=== PATIENT | male | born 1935 | race Caucasian/White ===

== ENCOUNTER 2017-09-10 13:40 | Day surgery (SDC) | payer MEDICARE, OTHER ==
[2017-09-10 14:02] VITALS: BP 144/84; PULSE 67; RESP 20; TEMP 98.5; O2SAT 96
[2017-09-10] MEDS ORDERED: METO25TA3 PO (14:14)
[2017-09-10] MEDS ORDERED: MOBI7.5T PO (14:14)
[2017-09-10] MEDS ORDERED: LOSA25TA PO (14:14)
[2017-09-10 14:35] VITALS: BP 130/64; PULSE 66; RESP 20; TEMP 98.4; O2SAT 95
--- NOTE | 2017-09-11 10:32 | RADRPT ---
EXAM DATE: 09/10/2017 3:06 PM EDT AGE/SEX: 82 years / Male INDICATIONS: Patient with rectal mass. CLINICAL DATA: This is the patient's initial encounter. Patient reports that signs and symptoms have been present for 2 days and indicates a pain score of 0/10. MEDICAL/SURGICAL HISTORY: Hypertension. rectal mass . COMPARISON: No prior [facility] exams available for comparison. FLUORO TIME (min): 0.2 IMAGE SERIES: ACCESS SITE: Left basilic vein DEVICE(S): 4 Chinese single lumen Xcela Power PICC . . PROCEDURE : 1. Ultrasound guidance for venous catheterization. 2. Fluoroscopic guidance. 3. Ultrasound & fluoroscopic guided central venous Power PICC line placement. The risks, benefits and alternatives to the procedure were explained and verbal and written consent w as obtained. The site was prepped in sterile fashion. Full sterile technique was used, including ca p, mask, sterile gloves and gown and a large sterile sheet. Hand hygiene and 2% chlorhexidine prep w as utilized per protocol for cutaneous antisepsis with appropriate dry time for site. Sterile gel a nd sterile probe cover were utilized for ultrasound guidance. The skin and subcutaneous tissues wer e infiltrated with local anesthetic solution. Under direct ultrasound guidance, a suitable vein was accessed and a measuring guidewire was introduc ed and positioned in the central venous system. The ultrasound images depicting access guidance were saved and stored to PACS for permanent record. A Power Injectable PICC line was cut to prescribed length and introduced, positioned with tip at the cavoatrial junction level. The line was flushed and secured per protocol. CONCLUSION: 1. Uncomplicated central venous Power PICC line placement. 2. The PICC line can be used immediately. Electronically signed by: Kaleb Quiroga MD 09/11/2017 10:30 AM EDT
== END 2017-09-10 15:00 | disposition home or self-care (01) ==
LOC: HROP 13:40 → HRIP 13:43 → HROP 15:00
PROVIDERS: ATTEND Specialist
DX: K62.89 Other specified diseases of anus and rectum (principal); I10 Essential (primary) hypertension; E78.5 Hyperlipidemia, unspecified; E83.119 Hemochromatosis, unspecified; Z85.46 Personal history of malignant neoplasm of prostate
CPT/HCPCS: 36569; 76937; 77001; C1751; J1642

== ENCOUNTER 2017-09-16 08:39 | Day surgery (SDC) | payer MEDICARE, OTHER ==
[~2017-09-16] VITALS: Ht 182.9 cm; Wt 118.2 kg
[~2017-09-16 08:39] MED LIST: LOSA25TA PO; METO25TA3 PO; MOBI7.5T PO
[2017-09-16 08:56] VITALS: BP 147/109; PULSE 72; RESP 20; TEMP 97.5; O2SAT 91
[2017-09-16] MEDS ORDERED: MAGN400T2 PO (08:57)
[2017-09-16] MEDS ORDERED: SODIUM CHLOR 0.9% 1000 ML INJ 1,000 ML IV SCH (09:00)
[2017-09-16 09:27] LABS: AUTOMATED NEUTROPHIL # 3.1 TH/MM3 (1.8-7.7); BASOPHIL % 0.7 % (0.0-2.0); EOSINOPHIL # 0.5 TH/MM3 (0-0.4); EOSINOPHIL % 7.1 % (0.0-4.0); HEMATOCRIT 44.4 % (39.0-51.0); HEMOGLOBIN 14.8 GM/DL (13.0-17.0); LYMPH % 31.4 % (9.0-44.0); LYMPHOCYTE # 2.1 TH/MM3 (1.0-4.8); MEAN CELL VOLUME 93.5 FL (80.0-100.0); MEAN CORPUSCULAR HEMOGLOBIN 31.1 PG (27.0-34.0); MEAN CORPUSCULAR HGB CONC 33.2 % (32.0-36.0); MEAN PLATELET VOLUME 8.4 FL (7.0-11.0); MONO % 15.1 % (0.0-8.0); NEUT % 45.7 % (16.0-70.0); PLATELET COUNT 288 TH/MM3 (150-450); RED BLOOD COUNT 4.75 MIL/MM3 (4.50-5.90); RED CELL DISTRIBUTION WIDTH 13.1 % (11.6-17.2); WHITE BLOOD COUNT 6.8 TH/MM3 (4.0-11.0)
[2017-09-16 09:38] LABS: INTERNATIONAL NORMALIZED RATIO 1.1 RATIO; PROTHROMBIN TIME - PATIENT 10.7 SEC (9.8-11.6)
[2017-09-16] MEDS ORDERED: MIDAZOLAM HCL 2 MG/2 ML VIAL ONE (10:40)
--- NOTE | 2017-09-16 11:31 | PD.RAD ---
Post CT Procedure Prog Note Pre Procedure Diagnosis: (1) Pelvic cyst Post Procedure Diagnosis: (1) Pelvic cyst Procedure Date: September 16, 2017 Supervising Radiologist: Darrian Graff Proceduralist/Assist: sebas cheng Estimated blood loss: none Anesthesia: Conscious Sedation Plan of Activity Patient to Unit: [facility] Patient Condition: Good See PACS Report for procedural detail/treatment Darrian Graff MD September 16, 2017 11:31
[2017-09-16 11:50] VITALS: BP 142/85; PULSE 68; RESP 18; TEMP 97.8; O2SAT 92
[2017-09-16 12:05] VITALS: BP 145/81; PULSE 61; RESP 18; O2SAT 95
[2017-09-16 12:35] VITALS: BP 134/84; PULSE 63; RESP 18; O2SAT 91
[2017-09-16 13:05] VITALS: BP 147/82; PULSE 67; RESP 16; O2SAT 93
--- NOTE | 2017-09-18 08:05 | RADRPT ---
EXAM DATE: 09/16/2017 11:34 AM EDT AGE/SEX: 82 years / Male INDICATIONS: Pelvic cyst. CLINICAL DATA: This is the patient's initial encounter. Patient reports that signs and symptoms have been present for 1 day and indicates a pain score of 0/10. MEDICAL/SURGICAL HISTORY: Carcinoma, prostatic. Hypertension. Appendectomy. Prostatectomy. COMPARISON: No prior [facility] exams available for comparison. PROCEDURE : Devices: 19-gauge 13.8 cm BARD needle Medications: 2 mg of Versed and 100 mcg of fentanyl The risks, benefits and alternatives to the procedure were explained and verbal and written consent w as obtained. Using automated exposure control and adjustment of the mA and/or kV according to patien t size, radiation dose was kept as low as reasonably achievable to obtain optimal diagnostic quality images. The site was prepped in sterile fashion. Full sterile technique was used, including cap, ma sk, sterile gloves and gown and a large sterile sheet. Hand hygiene and 2% chlorhexidine and/or beta dine/alcohol prep was utilized per protocol for cutaneous antisepsis. The skin and subcutaneous tiss ues were infiltrated with local anesthetic solution. DICOM format image data is available electronic ally for review and comparison. A 19-gauge bard needle was placed within the right anterior pelvis and tip placed within the cystic s tructure right pelvis. Approximately 30 cc of straw-colored fluid aspirated. The lesion completely co llapsed after aspiration. Needle withdrawn without immediate complications. The fluid was sent to be evaluated. FINDINGS: The cystic structure in the right pelvis completely collapsed after aspiration. Approximately 30 cc o f straw-colored fluid aspirated and sent to be evaluated. CONCLUSION: 1. Uncomplicated aspiration of right pelvic cystic structure. Electronically signed by: Darrian Graff MD 09/18/2017 8:04 AM EDT
== END 2017-09-16 14:00 | disposition home or self-care (01) ==
LOC: HRAD 08:39 → HRIP 08:42 → HRAD 14:00
PROVIDERS: ATTEND Specialist
DX: N28.1 Cyst of kidney, acquired (principal); I10 Essential (primary) hypertension; E78.5 Hyperlipidemia, unspecified; Z85.46 Personal history of malignant neoplasm of prostate; Z01.818 Encounter for other preprocedural examination
CPT/HCPCS: 50390; 77012; 85025; 85610; 85730; 87015; 87070; 87102; 87116; 87205; 87206; 88112; 88305; 99152; J2250; J3010; 88173